=== PATIENT | male | born 1990 | race Caucasian/White ===

== ENCOUNTER 2023-04-01 10:59 | Inpatient (IN) | payer SELFPAY ==
[2023-04-01 11:13] VITALS: BP 160/91; PULSE 123; RESP 22; TEMP 37.7; O2SAT 98; BMI 21.5
--- NOTE | 2023-04-01 11:26 | ED.PSYCH ---
HPI - Psych General Chief Complaint: Psychiatric Symptoms Stated Complaint: CRISIS,MAINC, [employer] ON BOARD FOR SAFETY PER EMS Time Seen by Provider: 04/01/23 11:11 Source: patient and EMS Mode of arrival: EMS Limitations: other (Dianne) History of Present Illness HPI Narrative: 32-year-old male brought to the emergency department by ambulance with police escort for dianne. Information was obtained from the paramedics. The patient came from [place] with a friend . The patient and friend her standing with a another friend in this area. Over the past 3 days the patient has developed dianne. He is not been sleeping for 3-4 days, he has been smoking marijuana but not using any other drugs. Today, he created a mud hit in his yard. He then covered himself with my and red hair dye. He told the paramedics that he was trying to sweat in the son in order to meet his and, man. He told me that he was trying to get sweat on his body to increase is xavier. He may comments regarding ritual. At one point, he stated that if we touched him, he was destroy our village and scalp us. He also stated that he knew his right and that he was not suicidal or homicidal and that we did not have the right to treat him or keep him here. The patient does have a mole hot care contact, he is covered and red tattoo dye, he has blood all over the body and mind on his face, he has a reddened dyed headband with a long tail. The patient was brought in by paramedics and with the police, he is currently in handcuffs. When I went into the emergency department Behavioral Health Unit, he was standing against the wall, he could not be read directed, he did threaten to kill us if we touched him. According to the paramedics, the patient had a manic episode while he was in [place] which required hospitalization Related Data Allergies Allergy/AdvReac Type Severity Reaction Status Date / Time No Known Allergies Allergy Verified 04/01/23 11:13 Review of Systems Review of Systems: Yes all other systems are reviewed and are negative [facility] Past Medical History [facility] Narrative: Past medical history: Dianne. Physical Exam Vital Signs: Vital Signs: Last Vital Signs Temp 100 F 04/01/23 11:13 Pulse 123 H 04/01/23 11:13 Resp 22 H 04/01/23 11:13 BP 96/55 L 04/01/23 12:20 Pulse Ox 98 04/01/23 11:13 O2 Del Method Room Air 04/01/23 11:13 BMI result Body Mass Index 21.5 Vital signs revealed elevated pulse and blood pressure consistent with agitation and dianne General: Patient appears manic, has pressured speech, he is covered in mind and red dye. He is handcuffed, he is not redirectable, he did threatening to kill staff if we touched him or try to wipe off his sweat HEENT: Head is normal cephalic atraumatic, pupils were equal round reactive light, sclera contact however normal Neck: Supple Lungs: Clear to auscultation Heart: Tachycardia, normal S1-S2 Abdomen: Thin, soft, nontender Extremities: Moves all extremities symmetrically Neuro: Cranial nerves intact, strength symmetric, 5/5 Psych: Oriented to person, appears manic, is agitated, not cooperating, denies suicidal ideation, did threaten to kill staff if we touch him Medications Administered Discontinued Medications Generic Name Dose Route Start Last Admin Trade Name Freq PRN Reason Stop Dose Admin Diphenhydramine HCl 50 mg 04/01/23 11:13 04/01/23 11:28 Diphenhydramine Hcl 50 Mg/Ml Vial IM 04/01/23 11:14 50 mg ONCE ONE Administration Haloperidol Lactate 10 mg 04/01/23 11:13 04/01/23 11:28 Haloperidol Lactate 5 Mg/Ml Vial IM 04/01/23 11:14 10 mg ONCE ONE Administration Lorazepam 2 mg 04/01/23 11:13 04/01/23 11:28 Lorazepam 2 Mg/Ml Vial IM 04/01/23 11:14 2 mg STAT STA Administration Medical Decision Making Medical Decision Making MDM Narrative: 32-year-old male who was unknown to us but is reported to have a history of dianne with hospitalization in [place] 6 weeks prior who was brought to emergency depart by paramedics with police escort, patient was in handcuffs and on a Section 12. on presentation. The patient's friends reported the paramedics that the patient was not sleeping for the past 3 days, he was manic and acting bizarrely. According to the paramedics, today the patient created a mud pit, was rolling around in the mud, covered himself with red tattoo dye and was trying to sweat in the sun to increase his power, to attract a and become a man. On presentation the patient was manic and agitated. We were unable to redirect him therefore he was placed in 4 point restraint and medicated with Haldol 10 mg IM, Benadryl 50 mg IM and Ativan 2 mg IM. The patient will be kept in the emergency department Behavioral Health Unit and we will attempt to remove the restrain as soon as the patient is longer agitated. 1528: Start physician observation: The patient's laboratory evaluation is pending collection The patient is waiting for care team evaluation, therefore the patient will be kept on a Section 12, in the emergency department Behavioral Health Unit until safe disposition can be determined. At the end of my shift, patient's care was turned over to my colleague, Dr. Larose. Differential Diagnosis Differential diagnosis includes was not limited to dianne, acute psychosis, substance use disorder, electrolyte disorder, hyperthyroidism Admission/Observation Consideration of admission/observation: Escalation of care including admission/observation considered Lab Data MDM Lab Attestation statement: I reviewed the patient's lab results. Discharge Plan Discharge Clinical Impression: Dianne, Psychosis Patient Disposition: Still a Patient Interventions: [place]-Suicide Risk Severity Scale Last Done: 04/01/23 11:16
--- NOTE | 2023-04-01 12:14 | PC.NURSE ---
Patient presented to the emergency room appears manic was given haldol 10 mg, ativan 2mg, benadryl 50 mg IM restrained at 11:15 am with 1:[address] Vitals were within normal limits. At 12 noon patient was reassessed. Pt was sleeping resp were even and unlabored skin check completed and restarints were removed. Patient was offered food and water and a blanket. will continue to monitor.
[2023-04-01 12:20] VITALS: BP 96/55
--- NOTE | 2023-04-01 13:04 | PC.NURSE ---
Patient continues to sleep without issue resp are even and unlabored. will continue to monitor. Pt girlfriend called to check on patient [phone].
--- NOTE | 2023-04-01 15:20 | PC.NURSE ---
sleeping at this time, no signs/symptoms of distress noted. respirations even and unlabored
--- NOTE | 2023-04-01 16:59 | PM.PSYCN ---
History of Present Illness Date of Service: Chief Complaint: CRISIS,MAINC, [employer] ON BOARD FOR SAFETY PER EMS Requesting physician: Chance Ojeda Discussed with referring provider: Yes Sources of Information: chart reviewed HPI Narrative: 32 yo male, unknown to [facility]. Patient was not interviewed due to patient having chemical restraint prior to visit. Information obtained from chart and CARE team. Per ED attending. 32-year-old male brought to the emergency department by ambulance with police escort for dianne.? Information was obtained from the paramedics.? The patient came from [place] with a friend .? Over the past 3 days the patient has developed dianne.? He has not been sleeping for 3-4 days, he has been smoking marijuana but not using any other drugs.? Today, he created a mud hut in his yard.? He then covered himself with mud and red hair dye.? He told the paramedics that he was trying to sweat in the sun in order to meet his and become a man.? He told me that he was trying to get sweat on his body to increase his xavier.? He made comments regarding rituals.? At one point, he stated that if we touched him, he was destroy our village and scalp us.?He also stated that he knew his right and that he was not suicidal or homicidal and that we did not have the right to treat him or keep him here. The patient does have a mole hot care contact, he is covered and red tattoo dye, he has blood all over the body and mud on his face, he has a reddened dyed headband with a long tail. The patient was brought in by paramedics and with the police, he is currently in handcuffs.? When I went into the emergency department Behavioral Health Unit, he was standing against the wall, he could not be read directed, he did threaten to kill us if we touched him. Allergies Allergy/AdvReac Type Severity Reaction Status Date / Time No Known Allergies Allergy ? ? Verified 04/01/23 11:13 [facility] Past Medical History [facility] Narrative: Past medical history:? Dianne. Physical Exam Vital Signs:?? Vital Signs: Last Vital Signs Temp ? 100 F ? 04/01/23 11:13 Pulse? 123 H ? 04/01/23 11:13 Resp ? 22 H? 04/01/23 11:13 BP ? 96/55 L ? 04/01/23 12:20 Pulse Ox ? 98? 04/01/23 11:13 O2 Del Method? Room Air? 04/01/23 11:13 BMI result Body Mass Index ? 21.5? Vital signs revealed elevated pulse and blood pressure consistent with agitation and dianne ? General:? Patient appears manic, has pressured speech, he is covered in mind and red dye.? He is handcuffed, he is not redirectable, he did threatening to kill staff if we touched him or try to wipe off his sweat HEENT:? Head is normal cephalic atraumatic, pupils were equal round reactive light, sclera contact however normal Neck:? Supple Lungs:? Clear to auscultation Heart:? Tachycardia, normal S1-S2 Abdomen:? Thin, soft, nontender Extremities:? Moves all extremities symmetrically Neuro:? Cranial nerves intact, strength symmetric, 5/5 Psych:? Oriented to person, appears manic, is agitated, not cooperating, denies suicidal ideation, did threaten to kill staff if we touch him Medications Administered Discontinued Medications Generic Name Dose Route Start Last Admin ? Trade Name Freq? PRN Reason Stop Dose Admin Diphenhydramine HCl ?50 mg ?04/01/23 11:13 ?04/01/23 11:28 ? Diphenhydramine Hcl 50 Mg/Ml Vial ?IM ?04/01/23 11:14 ?50 mg ? ?ONCE ONE ? ?Administration Haloperidol Lactate ?10 mg ?04/01/23 11:13 ?04/01/23 11:28 ? Haloperidol Lactate 5 Mg/Ml Vial ?IM ?04/01/23 11:14 ?10 mg ? ?ONCE ONE ? ?Administration Lorazepam ?2 mg ?04/01/23 11:13 ?04/01/23 11:28 ? Lorazepam 2 Mg/Ml Vial ?IM ?04/01/23 11:14 ?2 mg ? ?STAT STA ? ?Administration Medical Decision Making Medical Decision Making [facility] Narrative: 32-year-old male who was unknown to us but is reported to have a history of dianne with hospitalization in [place] 6 weeks prior who was brought to emergency depart by paramedics with police escort, patient was in handcuffs and on a Section 12.? on presentation.? The patient's friends reported the paramedics that the patient was not sleeping for the past 3 days, he was manic and acting bizarrely.? According to the paramedics, today the patient created a mud pit, was rolling around in the mud, covered himself with red tattoo dye and was trying to sweat in the sun to increase his power, to attract a and become a man.? On presentation the patient was manic and agitated.? We were unable to redirect him therefore he was placed in 4 point restraint and medicated with Haldol 10 mg IM, Benadryl 50 mg IM and Ativan 2 mg IM.? The patient will be kept in the emergency department Behavioral Health Unit and we will attempt to remove the restrain as soon as the patient is longer agitated. Past Psychiatric History: unknown Medical Evaluation Reviewed: Yes [facility] Narrative: Unknown Family History: Unknown Social History: To be gathered. Currently what is known is patient recently arrived from [place] to [place]. Substance History: MJ Trauma History: Unknown Diagnostics Vital Signs (24Hr): Vital Signs - 24 hr 04/01/23 11:13 04/01/23 12:20 Temperature 100 F Pulse Rate 123 H Respiratory Rate 22 H Blood Pressure 160/91 H 96/55 L Pulse Oximetry 98 Oxygen Delivery Method Room Air BMI result Body Mass Index 21.5 Labs 04/01/23 18:38 04/01/23 18:38 Medications Allergies Allergies Allergy/AdvReac Type Severity Reaction Status Date / Time No Known Allergies Allergy Verified 04/01/23 11:13 Assessment & Plan Assessment & Plan (1) Psychosis: Qualifiers: Psychosis type: unspecified psychosis type Qualified Code(s): F29 - Unspecified psychosis not due to a substance or known physiological condition Status: Acute Code(s): F29 - Unspecified psychosis not due to a substance or known physiological condition (2) Dianne: Status: Acute Code(s): F30.9 - Manic episode, unspecified Plan 32 yo male with unconfirmed/unclarified psychiatric diagnoses presented in an agitated manic state with bizarre disorganized behavior. DDx: - Manic psychosis, bipolar disorder - Schizoaffective disorder - Substance induced dianne/psychosis. - Other organic causes Plan: - Await medical workup. Metabolic work up including TSH - Extended Utox to include hallucinogens would be recommended. (PCP, LSD, Psilocybin) - For agitation, Haldol 5-10 mg/Ativan 1-2 mg/Benadryl 50 mg PRN. - Alternatively, Zyprexa 10 mg IM PRN severe agitation could be used. - Psychiatry and CARE team to follow. - Check EKG for QTc monitoring in the setting of using chemical restraints. Total time managing care of this patient today ____ minutes.
--- NOTE | 2023-04-01 17:32 | PC.NURSE ---
awake, taking a shower at this time. provided urine cup to obtain sample.
--- NOTE | 2023-04-01 18:36 | PC.NURSE ---
awake, labs obtained. pt unable to give urine sample at this time.
[2023-04-01 19:15] VITALS: RESP 18
[2023-04-02 03:52] VITALS: RESP 18
--- NOTE | 2023-04-02 05:45 | PC.NURSE ---
Patient slept through the night, no distress observed/reported, currently not on any medication, pending care team evaluation, urine pending, showered x 2, thought content paranoid, behavior unpredictable, will continue to monitor.
--- NOTE | 2023-04-02 07:50 | PC.NURSE ---
Pt up this am. Eating breakfast. Somewhat confrontational. Redirectable.
[2023-04-02 15:38] VITALS: BP 135/80; PULSE 97; RESP 20; TEMP 36.7; O2SAT 98
--- NOTE | 2023-04-02 15:49 | MHC.CARE ---
Pt seen by CARE team, placed on section 12 and is appropriate for inpatient level of care.
[2023-04-02 17:40] VITALS: BP 121/76; PULSE 91; RESP 18; TEMP 36.6; O2SAT 99
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
[2023-04-03 07:00] VITALS: BMI 23.3
[2023-04-03 08:00] VITALS: BP 128/77; PULSE 93; RESP 18; TEMP 36.6; O2SAT 99
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
[2023-04-03 20:40] VITALS: BP 130/76; PULSE 86; RESP 18; TEMP 36.6; O2SAT 97
[2023-04-04 06:00] VITALS: BP 131/80; PULSE 92; RESP 18; TEMP 36.6; O2SAT 99
--- NOTE | 2023-04-04 09:55 | HO.PSYCHPN ---
Subjective Subjective Date of Service: 04/04/23 Reason For Visit: Dianne/Psychosis Subjective Notes: 3 Day Interim History: Reviewed with team and Dr. Flor. T/W met with patient and girlfriend; girlfriend reports this is patients baseline; she stated he was just in our yard being himself and someone thought it was weird so they called the police and he only said those things to me because he wanted me to get out of bed . Girlfriend reports she would like patient to return to her apartment after discharge. Pt presents calm and cooperative; continues to report he feels he does not need medications or any kind of treatment. Pt stated, I refuse to have insurance because I am an anarchist and I do not support any kind of government program . Hgb and Hct low, total creatine kinase trending down; hospitalist consulted. Waiting for pt to be seen. Pt denies any symptoms and states he feels great . Attending Groups: Yes Review of Systems Review of Systems Yes all other systems are reviewed and are negative Constitutional: Reports as per HPI Eyes: Reports as per HPI Reports as per HPI Cardiovascular: Reports as per HPI Respiratory: Reports as per HPI Gastrointestinal: Reports as per HPI Genitourinary: Reports as per HPI Musculoskeletal: Reports as per HPI Skin/Breast: Reports as per HPI Reports as per HPI Psychiatric: Reports as per HPI Endocrine: Reports as per HPI Hematologic/Lymphatic: Reports as per HPI Allergic/Immunologic: Reports as per HPI Mental Status Exam Mental Status Exam Narrative: Pt is alert and oriented; behavior is cooperative, friendly and calm; patient is not in distress; dressed in casual attire; mood is described as good ; eye contact appropriate; Speech is normal rate, volume and prosody and not pressured; no psychomotor agitation/retardation present; thought process is organized; Thought content is on discharge; otherwise pertinent to relevant topics and without any delusional content, paranoid ideations or grandiosity; denies any SI/HI. There is no evidence of perceptual disturbance. Patients insight and judgment are poor. Diagnostics Vital Signs (24Hr): Vital Signs - 24 hr 04/03/23 20:40 04/04/23 06:00 Temperature 97.8 F 97.8 F Pulse Rate 86 92 Respiratory Rate 18 18 Blood Pressure 130/76 131/80 Pulse Oximetry 97 99 Oxygen Delivery Method Room Air Room Air BMI result Body Mass Index 23.3 Labs 04/01/23 18:38 04/02/23 13:54 Labs: Laboratory Results - last 48 hr 04/02/23 04/02/23 04/03/23 10:37 13:54 07:59 Sodium 141 Potassium 4.2 Chloride 106 Carbon Dioxide 26 Anion Gap 13 BUN 14 Creatinine 1.06 Estim Creat Clear Calc 80.2 Estimated GFR > 60 Random Glucose 89 Estimat Average Glucose 105 Hemoglobin A1c % 5.3 Calcium 10.0 Total Bilirubin 1.9 H AST 61 H ALT 37 Alkaline Phosphatase 50 Total Creatine Kinase 2681 H Total Protein 7.0 Albumin 4.6 Triglycerides Cholesterol LDL Cholesterol, Calc HDL Cholesterol Vitamin B12 Folate TSH Free T4 COVID-19 ([facility]) Negative COVID-19 [employer] Com See Note 04/03/23 04/03/23 07:59 07:59 Sodium Potassium Chloride Carbon Dioxide Anion Gap BUN Creatinine Estim Creat Clear Calc Estimated GFR Random Glucose Estimat Average Glucose Hemoglobin A1c % Calcium Total Bilirubin AST ALT Alkaline Phosphatase Total Creatine Kinase Total Protein Albumin Triglycerides 67 Cholesterol 127 LDL Cholesterol, Calc 63 HDL Cholesterol 51 Vitamin B12 322 Folate 11.3 TSH 2.22 Free T4 1.46 COVID-19 ([facility]) COVID-19 Clin Com Medications Medications Current Medications Acetaminophen (Acetaminophen 325 Mg Tablet) 650 mg PO Q6H PRN PRN Reason: Headache/Pain Mild Scale (1-3) Al Hydroxide/Mg Hydroxide (Magnesium Hydrox/Alum Hydrox 30 Ml Oral.Susp) 30 ml PO Q6H PRN PRN Reason: Heartburn/Nausea Hydroxyzine HCl (Hydroxyzine Hcl 25 Mg Tablet) 25 mg PO Q6H PRN PRN Reason: Anxiety Magnesium Hydroxide (Milk Of Magnesia 30 Ml Oral.Susp) 30 ml PO DAILY PRN PRN Reason: Constipation Nicotine (Nicotine 21 Mg Patch.Td24) 21 mg TRANSDERMA DAILY [place] Last Admin: 04/04/23 08:32 Dose: Not Given Nicotine Polacrilex (Nicotine Polacrilex 2 Mg Gum) 2 mg BUCCAL Q2H PRN PRN Reason: Nicotine Cravings Last Admin: 04/04/23 08:15 Dose: 2 mg Trazodone HCl (Trazodone Hcl 50 Mg Tablet) 50 mg PO BEDTIME MRX1 PRN PRN Reason: Insomnia Allergies Allergies Allergy/AdvReac Type Severity Reaction Status Date / Time No Known Allergies Allergy Verified 04/01/23 11:13 Assessment & Plan Assessment & Plan (1) Bipolar 1 disorder: Status: Acute Code(s): F31.9 - Bipolar disorder, unspecified Plan Patient is a 32 year old male with hx of bipolar d/o who was [place] [facility] [place] after being seen making mud piles and covered in red pain; he was also threatening to scalp his girlfriend. Pt has not been medication compliant since being discharged from an inpatient stay in [place] a few months ago. Plan: 3 day 15 minute safety checks Obtain collateral from girlfriend Encourage medication compliance Referrals to outpatient providers 04/04: Met with patient and girlfriend; girlfriend reports this is patients baseline; she stated he was just in our yard being himself and someone thought it was weird so they called the police and he only said those things to me because he wanted me to get out of bed . Girlfriend reports she would like patient to return to her apartment after discharge. Pt continues to report he feels he does not need medications or any kind of treatment. Hgb and Hct low, total creatine kinase trending down; hospitalist consulted. Waiting for pt to be seen. Patient educated on: diagnosis, medication risk/benefits and therapeutic strategies Informed Consent: understands Reason for continued inpatient stay Substantial Risk for: med/psych decompensation Time Spent With Patient Time: Total time managing care of this patient today ____ minutes.
[2023-04-04 12:49] LABS: MANUAL DIFF FLAG NO
[2023-04-04 12:51] LABS: Basophils Percent Auto 0.4 % (0-2); Eosinophils Percent Auto 0.3 % (0-4); Hematocrit 37.9 % (42.0-52.0); Imm Gran Abs Auto 0.02 X10*3/uL (0.00-0.03); Imm Gran Pct Auto 0.3 % (0.0-0.4); Lymphocytes Absolute Auto 1.3 X10*3/uL (1.2-4.9); Mean Corpuscular HGB Conc 34.3 g/dl (31.0-36.0); Mean Corpuscular Hemoglobin 27.5 pg (27.0-33.0); Mean Corpuscular Volume 80.3 fL (80.0-98.0); Mean Platelet Volume 10.1 fL (9.4-12.4); Monocytes Absolute Auto 0.6 X10*3/uL (0.1-1.2); Monocytes Percent Auto 7.5 % (2-11); Neutrophils Absolute Auto 5.5 x10*3/uL (2.0-8.3); Neutrophils Percent Auto 74.5 % (45-73); Platelet Count 249 X10*3/uL (160-400); Red Blood Count 4.72 X10*6/uL (4.60-5.80); Red Cell Distribution Width 12.9 % (11.0-16.0); White Blood Count 7.4 X10*3/uL (4.8-10.8)
[2023-04-04 13:06] LABS: Alanine Aminotransferase 40 U/L (0-40); Albumin Level 4.8 g/dL (3.5-5.0); Alkaline Phosphatase 51 U/L (39-117); Anion Gap 14 (12-20); Aspartate Amino Transferase 42 U/L (5-37); Bilirubin Direct 0.3 mg/dL (0.0-0.5); Blood Urea Nitrogen 9 mg/dL (9-16); Carbon Dioxide 29 mmol/L (22-29); Chloride 102 mmol/L (96-108); Creatinine Clr Calc Pharmacy 86.2; Estimated Glomerular Filt Rate > 60; Potassium 4.9 mmol/L (3.3-5.1); Sodium 140 mmol/L (135-145); Total Protein 7.3 g/dL (6.5-8.0)
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
[2023-04-04 20:04] VITALS: BP 132/74; PULSE 83; RESP 18; O2SAT 99
[2023-04-05 08:35] VITALS: BP 136/77; PULSE 75; RESP 17; TEMP 36.4; O2SAT 99
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
[2023-04-05 18:00] VITALS: BP 131/77; PULSE 86; RESP 18; TEMP 36.8; O2SAT 100
[2023-04-06 08:00] VITALS: BP 127/67; PULSE 87; RESP 14; TEMP 36.7; O2SAT 100
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
[2023-04-06 19:20] VITALS: BP 138/78; PULSE 85; RESP 16; TEMP 36.3; O2SAT 99
[2023-04-07 08:00] VITALS: BP 141/81; PULSE 89; RESP 16; TEMP 36.5; O2SAT 99
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
--- NOTE | 2023-04-07 11:41 | PC.NURSE ---
Patient alert and oriented. Expresses readiness for discharge. Denies SI/HI/AVH. D/C orders reviewed with patient. Patient to leave unit with significant other and staff member. [ End ]
== END 2023-04-07 11:35 | disposition home or self-care (01) | DRG 885 ==
LOC: HO.ED 04-02 16:12 → HO.PADLT16 04-02 17:02
PROVIDERS: Admitting Provider Psychiatry & Neurology Psychiatry; Emergency Provider Emergency Medicine Emergency Medical Services; Responsible Provider Registered Nurse; Visit Provider Psychiatry & Neurology Psychiatry
DX: F31.2 Bipolar disorder, current episode manic severe with psychotic features (principal); Z78.1 Physical restraint status; F17.210 Nicotine dependence, cigarettes, uncomplicated; Z71.6 Tobacco abuse counseling; Z20.822 Contact with and (suspected) exposure to COVID-19; Z91.148 Patient's other noncompliance with medication regimen for other reason
CPT/HCPCS: 36415; 80051; 80053; 80061; 80076; 80143; 80179; 80307; 81003; 82550; 82565; 82607; 82746; 83036; 84439; 84443; 84520; 85025; 87635; 93005; 99285; J1200; J2060; S9485

== ENCOUNTER → 2023-04-02 16:58 | Outpatient (BNV) | payer SELFPAY | PROVIDERS: Admitting Provider Psychiatry & Neurology Psychiatry; Emergency Provider Emergency Medicine Emergency Medical Services; Responsible Provider Registered Nurse; Visit Provider Psychiatry & Neurology Psychiatry | DX: F31.2 Bipolar disorder, current episode manic severe with psychotic features (principal) | CPT/HCPCS: 99238 ==

== ENCOUNTER 2023-04-09 17:36 | Emergency (ER) | payer SELFPAY ==
--- NOTE | 2023-04-09 18:02 | ED.GENADULT ---
HPI - General Adult General Chief complaint: Psychiatric Symptoms Stated complaint: section 12 manic Time Seen by Provider: 04/09/23 17:38 Source: patient Mode of arrival: ambulatory Limitations: no limitations History of Present Illness HPI narrative: 32-year-old male presents with acute james with police, and EMS. [facility] also present. Patient is going on tangents about taking pictures with birds and making [employer] [place] videos, unable to provide me an accurate history, review of systems. No medical complaints at this time. Not suicidal or homicidal. Related Data Home Medications Medication Instructions Recorded Confirmed No Known Home Meds 04/01/23 04/01/23 Allergies Allergy/AdvReac Type Severity Reaction Status Date / Time No Known Allergies Allergy Verified 04/01/23 11:13 Review of Systems Review of Systems: Yes Unobtainable due to mental status PMFSH Past Medical History Attestation statement: The following information was validated with the patient. Source: old records reviewed and nursing notes reviewed Social History Social History Household Members: Spouse and Other Household Members Other:: Spouses Ex Housing: Apartment Do you presently have visiting nurse or other home services: No Patient Tobacco Use Status: Current everyday Tobacco user Tobacco use type: Cigarette Cigarette Packs Per Day: 1 Cigarettes Per Day: 20.0 Years Smoked: 10+ e-Cigarette/Vaping Use: Currently Using Second Hand Smoke Exposure: Yes Substance Use Type: Marijuana Advance Directives: No Advance Directives Information Provided: No service: No Sexual orientation: Straight/Heterosexual Physical Exam ED Vital Signs: BMI result Body Mass Index 19.6 Appearance: Alert.? Oriented X3.? No acute distress.? Patient does however appear manic, tangential speech. Covered face painting all over body Head: Normocephalic, atraumatic, no step-offs or deformities Eyes: Pupils equal, round and reactive to light.? CVS: Normal heart rate and rhythm.? Pulses normal.? Respiratory: No respiratory distress.? Breath sounds normal.? Abdomen: Soft and nontender.? Skin: Skin warm and dry.? Normal skin color.? Normal skin turgor.? Extremities: No lower extremity edema.? No calf ttp. 5/5 strength to bilateral upper and lower extremities Back: No midline tenderness, no C-spine tenderness, full range of motion, no CVA tenderness bilaterally Neuro: Oriented X 3.? No motor deficit.? No sensory deficit. CN 2-12 intact Course Reevaluation(s) Reevaluation #1: Care team evaluated patient. Patient was recently discharged from here recently, Dr. Arriaga was consulted on this case who agrees the patient can be discharged home does not require inpatient level of care. [facility] did initially make patient a bedsearch however psychiatry and CARE team do not feel as though he is meeting criteria. Time: 18:48 Reevaluation #2: Refusing lab and vitals. Time: 18:57 Reevaluation #3: I went to go re-evaluate patient, listen to his heart and lungs again. Patient without medical complaints. Painting his face. No SI or HI. Not meeting inpatient level of care, Psychiatry as well as care team would like patient discharge. No medical reason to keep patient at this time. No medical complaints. At this time patient will be discharged home, advised to return with new or worsening symptoms. Educated on worrisome signs and symptoms and when to return. At this time I feel comfortable discharge home. Time: 19:10 Medications Administered Discontinued Medications Generic Name Dose Route Start Last Admin Trade Name Deana PRN Reason Stop Dose Admin Diphenhydramine HCl 50 mg 04/09/23 17:38 04/09/23 18:41 Diphenhydramine Hcl 50 Mg/Ml Vial IM 04/09/23 17:39 Not Given ONCE ONE Haloperidol Lactate 5 mg 04/09/23 17:38 04/09/23 18:41 Haloperidol Lactate 5 Mg/Ml Vial IM 04/09/23 17:39 Not Given ONCE ONE Lorazepam 2 mg 04/09/23 17:38 04/09/23 18:41 Lorazepam 2 Mg/Ml Vial IM 04/09/23 17:39 Not Given ONCE ONE Medical Decision Making Medical Decision Making MDM Narrative: 32-year-old male presents with acute james with EMS and police Physical exam significant for Alert.? Oriented X3.? No acute distress.? Patient does however appear manic, tangential speech. Covered face painting all over body. No other acute findings on exam. Concerns for schizophrenia versus bipolar disorder versus acute psychosis vs antisocial personality disorder . Will rule out polysubstance abuse, electrolyte abnormalities. Unlikely metabolic derangement Plan labs, medical clearance and evaluation by behavioral health team patient arrives on a Section 12 Differential Diagnosis Differential Diagnoses: The differential diagnosis associated with the presentation includes Concerns for schizophrenia versus bipolar disorder versus acute psychosis vs antisocial personality disorder .. Will rule out polysubstance abuse, electrolyte abnormalities. Unlikely metabolic derangement Admission/Observation Consideration of admission/observation: Escalation of care including admission/observation considered Probable Lab Data Labs: refused Core Measures AMI core measures followed: Yes Measure exclusions: not indicated Critical Care Time Critical Care Time Critical Care Time: No Discharge Plan Discharge Clinical Impression: Antisocial personality disorder Patient Disposition: Home, Self-Care Additional Instructions: Take your medications as prescribed. If you were prescribed antibiotics today, it is important that you take your medication to their entirety, do not skip any doses, do not finish them early. Follow-up with your primary care provider this week. Return to the emergency department with new or worsening symptoms. Such as fevers, chills, chest pain, shortness of breath, nausea, vomiting, dizziness, headache, vision changes, lethargy, suicidal or homicidal ideation In case of emergency call 911 Prescriptions: No Action No Known Home Meds Referrals: Physician,Unknown J [Primary Care Provider] - 2 days
[2023-04-09 18:06] VITALS: BMI 19.6
--- NOTE | 2023-04-09 18:53 | PC.NURSE ---
Pt refusing labs and ekg
--- NOTE | 2023-04-09 18:59 | MHC.EDTECH ---
pt refusing all lab work, VS and EKG. RN MADE AWARE.
--- NOTE | 2023-04-09 19:09 | PC.NURSE ---
patient received in the unit manic and very agitated and verbally abusive to staff patient refuse to receive treatment patient is in the process of being discharged
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
== END 2023-04-09 19:19 | disposition home or self-care (01) ==
PROVIDERS: Emergency Provider Emergency Medicine Emergency Medical Services
DX: F60.2 Antisocial personality disorder (principal); F31.9 Bipolar disorder, unspecified; F12.90 Cannabis use, unspecified, uncomplicated; F17.210 Nicotine dependence, cigarettes, uncomplicated
CPT/HCPCS: 99283